=== PATIENT | female | born 1980 | race Caucasian/White ===

== ENCOUNTER 2017-08-26 09:16 | Emergency (ER) | payer OTHER ==
--- NOTE | 2017-08-26 09:58 | ED Physician Documentation ---
History of Present Illness - Stated complaint Stated Complaint: WEAKNESS/NAUSEA - Chief complaint Chief Complaint: General - History obtained from History obtained from: Patient - History of Present Illness Timing: How many weeks ago (2) - Additonal information Additional information: 36-year-old female has been having issues with lightheadedness and dizziness daily and this usually resolves with some rest and this appears to have been progressing over the past week. Today she was at work and not able to get her symptoms to resolve with rest and she is come to the emergency department. She does have a history of anemia and believes her last hemoglobin was 9.7 she does not have a reason for the anemia. 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 She has had a sore throat over the past month that is worse at night and resolves by morning. Review of Systems Constitutional: reports: Myalgias, Fatigue, Sweats. denies: Fever, Chills Eyes: denies: Decreased vision Ears: denies: Ear pain Nose: denies: Rhinorrhea / runny nose, Congestion Throat: reports: Sore throat Cardiac: denies: Chest pain / pressure, Palpitations Respiratory: denies: Dyspnea, Cough GI: reports: Nausea. denies: Abdominal Pain, Vomiting : denies: Dysuria, Frequency Skin: denies: Rash Musculoskeletal: denies: Neck pain, Back pain, Extremity pain Neurologic: reports: Generalized weakness. denies: Focal weakness, Numbness PD PAST MEDICAL HISTORY - Past Medical History Past Medical History: Yes Cardiovascular: Hypertension Psych: Depression - Past Surgical History Past Surgical History: Yes /[employer]: Hysterectomy - Present Medications Home Medications: Ambulatory Orders Medication Instructions Recorded Confirmed FLUoxetine [PROzac] 0 mg DAILY 08/26/17 08/26/17 Lisinopril [Zestril] 0 mg PO DAILY 08/26/17 08/26/17 buPROPion [Wellbutrin Sr] 0 mg PO BID 08/26/17 08/26/17 clonazePAM [KlonoPIN] 0 mg DAILY 08/26/17 08/26/17 traZODone [Desyrel] 50 - 100 mg PO HS #30 tablet 08/26/17 - Allergies Allergies/Adverse Reactions: Allergies Allergy/AdvReac Type Severity Reaction Status Date / Time No Known Drug Allergies Allergy Verified 08/26/17 09:43 - Social History Does the pt smoke?: No Smoking Status: Never smoker Does the pt drink ETOH?: No Does the pt have substance abuse?: No - Immunizations Immunizations are current?: Yes PD ED PE NORMAL - Vitals Vital signs reviewed: Yes (Tachypneic and hypertensive and tachycardic) - General General: Alert and oriented X 3, No acute distress, Well developed/nourished - HEENT HEENT: Atraumatic, PERRL, EOMI, Ears normal, Other (pharynx with minimal erythema) - Neck Neck: Supple, no meningeal sign, No bony TTP - Cardiac Cardiac: RRR, No murmur - Respiratory Respiratory: No respiratory distress, Clear bilaterally - Abdomen Abdomen: Soft, Non tender - Back Back: No CVA TTP, No spinal TTP - Derm Derm: Normal color, Warm and dry, No rash - Extremities Extremities: No deformity, No edema - Neuro Neuro: No motor deficit, No sensory deficit Eye Opening: Spontaneous Motor: Obeys Commands Verbal: Oriented GCS Score: 15 - Psych Psych: Normal mood, Normal affect Results - Vitals Vitals: Vital Signs - 24 hr 08/26/17 09:20 Temperature 35.9 C L Heart Rate 100 Respiratory 26 H Rate Blood Pressure 146/103 H O2 Saturation 100 Oxygen O2 Source Room air - EKG (time done) 0927 Rate: Rate (enter#) (93) Rhythm: NSR Intervals: Prolonged QT Ischemia: Non specific changes Compare to prior EKG: Old EKG unavailable Computer interpretation: Agree with computer - Labs Labs: Laboratory Tests 08/26/17 08/26/17 08/26/17 09:50 10:00 10:00 WBC 3.4 L RBC 3.86 L Hgb 11.7 L Hct 33.7 L MCV 87.1 MCH 30.2 MCHC 34.7 RDW 12.8 Plt Count 192 MPV 7.8 L Neut # 2.4 Lymph # 0.6 L [place] # 0.3 Eos # 0.1 Baso # 0.0 Absolute Nucleated RBC 0.00 Nucleated RBC % 0.0 Sodium 134 L Potassium 3.8 Chloride 101 Carbon Dioxide 23 Anion Gap 10.0 BUN 20 Creatinine 0.8 Estimated GFR (MDRD) 81 L Glucose 82 Calcium 9.2 Total Bilirubin 0.5 AST 36 ALT 60 Alkaline Phosphatase 43 Troponin I Total Protein 8.8 H Albumin 4.6 Globulin 4.2 Albumin/Globulin Ratio 1.1 Lipase 17 L Urine Color Urine Clarity Urine pH Ur Specific [place] Urine Protein Urine Glucose (UA) Urine Ketones Urine Occult Blood Urine Nitrite Urine Bilirubin Urine Urobilinogen Ur Leukocyte Esterase Ur Microscopic Review Urine Culture Comments Group A Strep Rapid Negative 08/26/17 08/26/17 10:00 11:13 WBC RBC Hgb Hct MCV MCH MCHC RDW Plt Count MPV Neut # Lymph # [place] # Eos # Baso # Absolute Nucleated RBC Nucleated RBC % Sodium Potassium Chloride Carbon Dioxide Anion Gap BUN Creatinine Estimated GFR (MDRD) Glucose Calcium Total Bilirubin AST ALT Alkaline Phosphatase Troponin I < 0.04 Total Protein Albumin Globulin Albumin/Globulin Ratio Lipase Urine Color YELLOW Urine Clarity CLEAR Urine pH 7.0 Ur Specific [place] 1.010 Urine Protein NEGATIVE Urine Glucose (UA) NEGATIVE Urine Ketones NEGATIVE Urine Occult Blood NEGATIVE Urine Nitrite NEGATIVE Urine Bilirubin NEGATIVE Urine Urobilinogen 0.2 (NORMAL) Ur Leukocyte Esterase NEGATIVE Ur Microscopic Review NOT INDICATED Urine Culture Comments NOT INDICATED Group A Strep Rapid Procedures - IVC sono (time) 0950 Bedside IVC sono: IVC measures (cm) (1.02), IVC collapsed c insp (cm) (complete) , Dehydration (est 1 liter deficit) PD MEDICAL DECISION MAKING - ED course Complexity details: reviewed results, re-evaluated patient, considered differential, d/w patient ED course: 36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 She is also found to have some dehydration and she is administered a liter of saline. We found no other abnormalities on the patient's workup. I did discuss with the patient her current work status and her sleep pattern and she does indicate poor sleep since the of her fianc in 2004. She has been treated for depression for years. She has previously been on trazodone for sleep and she notes that her clonazepam is not working now. I have offered to provide some trazodone for sleep for the patient. Departure - Departure Disposition: Home, Self Care Clinical Impression: Dehydration Insomnia Qualifiers: Insomnia type: unspecified Qualified Code(s): G47.00 - Insomnia, unspecified Condition: Stable Instructions: ED Dehydration, ED Insomnia Follow-Up: [facility] [Provider Group] Prescriptions: traZODone [Desyrel] 50 - 100 mg PO HS #30 tablet
[2017-08-26 10:08] LABS: RAPID STREP SCREEN REAGENT QC YELLOW (YELLOW)
[2017-08-26 10:26] LABS: BASOPHILS % (AUTO) 0.3 %; EOSINOPHILS # (AUTO) 0.1 10^3/uL (0.0-0.7); EOSINOPHILS % (AUTO) 3.2 %; HCT - HEMATOCRIT 33.7 % (37.0-47.0); HGB - HEMOGLOBIN 11.7 g/dL (12.0-16.0); LYMPHOCYTES # (AUTO) 0.6 10^3/uL (1.5-3.5); LYMPHOCYTES % (AUTO) 18.7 %; MEAN CORPUSCULAR HEMOGLOBIN 30.2 pg (27.0-31.0); MEAN CORPUSCULAR HGB CONC 34.7 g/dL (32.0-36.0); MEAN CORPUSCULAR VOLUME 87.1 fL (81.0-99.0); MEAN PLATELET VOLUME 7.8 fL (7.9-10.8); MONOCYTES # (AUTO) 0.3 10^3/uL (0.0-1.0); MONOCYTES % (AUTO) 7.8 %; NEUTROPHILS # (AUTO) 2.4 10^3/uL (1.5-6.6); RED BLOOD COUNT 3.86 10^6/uL (4.20-5.40); RED CELL DISTRIBUTION WIDTH 12.8 % (12.0-15.0); UNCORRECTED WHITE BLOOD COUNT 3.4 x10^3/uL; WHITE BLOOD COUNT 3.4 x10^3/uL (4.8-10.8)
[2017-08-26] MEDS: SODIUM CHLORIDE 0.9% 1,000 ML IV ONE (10:31)
[2017-08-26 10:40] LABS: ALBUMIN/GLOBULIN RATIO 1.1 (1.0-2.2); BILIRUBIN,TOTAL 0.5 mg/dL (0.2-1.0); CALCIUM 9.2 mg/dL (8.5-10.3); CREATININE 0.8 mg/dL (0.4-1.0); POTASSIUM 3.8 mmol/L (3.5-5.0); TOTAL PROTEIN 8.8 g/dL (6.7-8.2)
[2017-08-26] MEDS ORDERED: ACETAMINOPHEN 325 MG TABLET PO ONE (11:19)
[2017-08-26 11:31] LABS: BILIRUBIN,URINE NEGATIVE (NEGATIVE)
[2017-08-26 11:34] LABS: UA CHARGE (STRIP ONLY) YES; UR CULTURE IF IND NOT INDICATED
[2017-08-26] MEDS: ACETAMINOPHEN 325 MG TABLET PO STA (11:40)
[2017-08-26 12:53] VITALS: BP 135/93
== END 2017-08-26 12:59 | disposition home or self-care (01) ==
LOC: EDBD → ED 09:16
DX: E86.0 Dehydration (principal); G47.00 Insomnia, unspecified; R94.31 Abnormal electrocardiogram [ECG] [EKG]
CPT/HCPCS: 36415; 80053; 81001; 81003; 83690; 84484; 85025; 86850; 86870; 86900; 86901; 87070; 87086; 87430; 93005; 99284